=== PATIENT | male | born 1975 | race Caucasian/White ===

== ENCOUNTER 2017-01-20 14:20 | Emergency (ER) | payer BC ==
[~2017-01-20] VITALS: Ht 167.6 cm; Wt 72.7 kg
[~2017-01-20 14:20] MED LIST: AMOXICILLIN875 MG OR; CEPHALEXIN500 M1 OR; KEFLEX500 M1 PO; MEDDOSEPAK OR; MULTIVITAMIN PO; NO HOME MEDS; TRAZODONE100 MG PO; ULTRAM50 M1 PO
[2017-01-20 14:59] LABS: HEMATOCRIT 43.4 % (39.0-50.0); HEMOGLOBIN 15.9 g/dl (14.0-18.0); IMMATURE GRANULOCYTES 0.3 % (0.0-1.0); MEAN CELL VOLUME 93.9 fL CALC (80.0-100.0); MEAN CORPUSCULAR HGB 34.4 pG CALC (26.0-32.0); MEAN CORPUSCULAR HGB CONC 36.6 g/L CALC (32.0-36.0); NEUT# 4.5 thou/uL (1.82-7.42); RED BLOOD COUNT 4.62 mill/uL (4.70-6.10); RED CELL DISTRI WIDTH 13.8 % (11.5-15.5)
[2017-01-20 15:00] LABS: URINE BILIRUBIN - DIPSTICK NEGATIVE (NEGATIVE); URINE BLOOD DIPSTICK NEGATIVE (NEGATIVE); URINE CLARITY CLEAR; URINE COLOR YELLOW; URINE GLUCOSE - DIPSTICK NEGATIVE (NEGATIVE); URINE KETONE NEGATIVE (NEGATIVE); URINE LEUK ESTERASE NEGATIVE (NEGATIVE); URINE NITRITE - DIPSTICK NEGATIVE (Negative); URINE PROTEIN - DIPSTICK NEGATIVE (NEG-TRACE); URINE SPECIFIC GRAVITY <=1.005; URINE UROBILINOGEN - DIPSTICK 0.2 E.U./dL (0.2)
[2017-01-20 15:04] LABS: MAGNESIUM 2.1 mg/dL (1.6-2.3)
[2017-01-20 15:04] LABS: BARBITURATES NEGATIVE (NEGATIVE); COCAINE NEGATIVE (NEGATIVE); METHADONE NEGATIVE (NEGATIVE); OXCYCODONE NEGATIVE (NEGATIVE); TETRAHYDROCANNABIONOL POSITIVE (NEGATIVE); TRICYLIC ANTIDEPRESSANTS NEGATIVE (NEGATIVE)
[2017-01-20 15:13] LABS: ETHYL ALCOHOL 387 mg/dl (0-30)
[2017-01-21 01:51] VITALS: BP 131/93
== END 2017-01-21 05:20 | DRG 880 ==
LOC: ED 14:20
PROVIDERS: Emergency Medicine
DX: R45.851 Suicidal ideations (principal); F10.129 Alcohol abuse with intoxication, unspecified; Y90.8 Blood alcohol level of 240 mg/100 ml or more; R94.31 Abnormal electrocardiogram [ECG] [EKG]
CPT/HCPCS: J2060

== ENCOUNTER 2019-10-17 | Emergency (ER) | payer SELFPAY ==
[2019-10-17 11:51] LABS: HEMATOCRIT 42.7 % (39.0-50.0); HEMOGLOBIN 14.4 g/dl (14.0-18.0); IMMATURE GRANULOCYTES 0.1 % (0.0-5.0); MEAN CELL VOLUME 91.6 fL CALC (80.0-100.0); MEAN CORPUSCULAR HGB 30.9 pG CALC (26.0-32.0); MEAN CORPUSCULAR HGB CONC 33.7 g/L CALC (32.0-36.0); NEUT# 4.02 thou/uL (1.82-7.42); RED BLOOD COUNT 4.66 mill/uL (4.70-6.10); RED CELL DISTRI WIDTH 15.9 % (11.5-15.5)
[2019-10-17 12:09] LABS: ALKALINE PHOSPHATASE 73 u/l (38-126); ANION GAP 16 (6-22 (CALC)); BILIRUBIN, TOTAL 0.3 mg/dL (0.0-1.4); BUN 4 mg/dL (9-20); BUN/CREATININE RATIO 6 (12-20 (CALC)); CARBON DIOXIDE 25 mmol/l (22-30); CHLORIDE 107 mmol/l (95-108); CREATININE 0.7 mg/dL (0.7-1.3); GFR > 60 ML/MIN (>=60 (CALC)); GFR FOR AFR.AMER. > 60 ML/MIN (>=60 (CALC)); LIPASE 210 u/l (23-300); SGOT/AST 52 u/l (17-59); SODIUM 144 mmol/l (137-146)
[2019-10-17 12:17] LABS: ETHYL ALCOHOL 381 mg/dl (0-30)
[2019-10-17] MEDS ORDERED: ZITHROMAX250 MG PO (14:37)
[2019-10-17] MEDS ORDERED: PROVENTIL108 MCG/AC IN (14:37)
== END 2019-10-17 15:40 | disposition home or self-care (01) | DRG 203 ==
DX: J45.901 Unspecified asthma with (acute) exacerbation (principal); F10.129 Alcohol abuse with intoxication, unspecified; I10 Essential (primary) hypertension; F17.200 Nicotine dependence, unspecified, uncomplicated

== ENCOUNTER 2019-10-24 | Emergency (ER) | payer OTHER ==
[~2019-10-24] MED LIST changes: +PROVENTIL108 MCG/AC IN; +ZITHROMAX250 MG PO
[2019-10-24 08:59] LABS: IMMATURE GRANULOCYTES 0.3 % (0.0-5.0); MEAN CELL VOLUME 94.2 fL CALC (80.0-100.0); MEAN CORPUSCULAR HGB 31.4 pG CALC (26.0-32.0); MEAN CORPUSCULAR HGB CONC 33.3 g/L CALC (32.0-36.0); NEUT# 5.5 thou/uL (1.82-7.42); RED BLOOD COUNT 4.46 mill/uL (4.70-6.10); RED CELL DISTRI WIDTH 16.1 % (11.5-15.5)
[2019-10-24 09:23] LABS: ALBUMIN 4.2 g/dL (3.2-5.0); ALKALINE PHOSPHATASE 69 u/l (38-126); BUN 7 mg/dL (9-20); BUN/CREATININE RATIO 11 (12-20 (CALC)); CARBON DIOXIDE 23 mmol/l (22-30); CHLORIDE 103 mmol/l (95-108); CREATININE 0.6 mg/dL (0.7-1.3); GFR > 60 ML/MIN (>=60 (CALC)); GFR FOR AFR.AMER. > 60 ML/MIN (>=60 (CALC)); POTASSIUM 3.9 mmol/l (3.5-5.1); SGOT/AST 51 u/l (17-59); TOTAL PROTEIN 7.3 g/dL (6.3-8.2)
[2019-10-24 09:24] LABS: ANION GAP 14 (6-22 (CALC)); BILIRUBIN, TOTAL 0.9 mg/dL (0.0-1.4); SODIUM 136 mmol/l (137-146)
[2019-10-24 09:32] LABS: MYOGLOBIN 42 ng/mL (0 - 121)
[2019-10-24 10:18] LABS: URINE BLOOD DIPSTICK NEGATIVE (NEGATIVE); URINE COLOR YELLOW; URINE GLUCOSE - DIPSTICK NEGATIVE (NEGATIVE); URINE KETONE >=80 mg/dL (NEGATIVE); URINE LEUK ESTERASE NEGATIVE (NEGATIVE); URINE NITRITE - DIPSTICK NEGATIVE (Negative); URINE PH 7.5 (4.5-8.0); URINE PROTEIN - DIPSTICK NEGATIVE (NEG-TRACE); URINE SPECIFIC GRAVITY 1.015
[2019-10-24 10:19] LABS: URINE BILIRUBIN - DIPSTICK SMALL (NEGATIVE)
[2019-10-24 10:30] LABS: BARBITURATES NEGATIVE (NEGATIVE); COCAINE NEGATIVE (NEGATIVE); METHADONE NEGATIVE (NEGATIVE); OXCYCODONE NEGATIVE (NEGATIVE); TETRAHYDROCANNABIONOL NEGATIVE (NEGATIVE); TRICYLIC ANTIDEPRESSANTS NEGATIVE (NEGATIVE)
[2019-10-24] MEDS ORDERED: LIBRIUM25 M1 PO (10:35)
[2019-10-24] MEDS ORDERED: CLONIDINE0.1 MG PO (10:35)
== END 2019-10-24 10:45 | DRG 897 ==
PROVIDERS: Emergency Medicine
DX: F10.10 Alcohol abuse, uncomplicated (principal); I10 Essential (primary) hypertension; F17.200 Nicotine dependence, unspecified, uncomplicated
CPT/HCPCS: J2060

== ENCOUNTER 2024-12-19 11:36 | Observation (INO) | payer SELFPAY ==
[~2024-12-19] VITALS: Ht 167.6 cm; Wt 71.8 kg
[~2024-12-19 11:36] MED LIST changes: +CLONIDINE0.1 MG PO; +LIBRIUM25 M1 PO
[2024-12-19] MEDS ORDERED: IPRATROPIUM-Albuterol 0.5MG-2.5MG/3 ML NEB ONE ×2 (12:10)
[2024-12-19] MEDS ORDERED: methylPREDNISolone SODIUM SUCC 125 MG/2 ML SDV IV ONE (12:10)
[2024-12-19 12:44] LABS: BASO% 0.6 % (0-3); HEMATOCRIT 46.5 % (39.0-50.0); HEMOGLOBIN 15.7 g/dl (14.0-18.0); IMMATURE GRANULOCYTES 0.2 % (0.0-5.0); LYMPH% 37.5 % (15-41); MEAN CELL VOLUME 94.7 fL CALC (80.0-100.0); MEAN CORPUSCULAR HGB CONC 33.8 g/dL CAL (32.0-36.0); MONO% 8.3 % (2-13); NEUT# 2.71 thou/uL (1.82-7.42); NEUT% 52.4 % (42-76); RED BLOOD COUNT 4.91 mill/uL (4.70-6.10); RED CELL DISTRI WIDTH 12.8 % (11.5-15.5)
[2024-12-19 12:56] LABS: ALBUMIN 4.1 g/dL (3.2-5.0); ALKALINE PHOSPHATASE 60 u/l (38-126); ANION GAP 20 (6-22 (CALC)); BUN 8 mg/dL (9-20); BUN/CREATININE RATIO 8 (12-20 (CALC)); CARBON DIOXIDE 21 mmol/l (22-30); CHLORIDE 104 mmol/l (95-108); ESTIMATED GFR 93 ML/MIN (>=90 (CALC)); POTASSIUM 3.9 mmol/l (3.5-5.1); SGOT/AST 27 u/l (17-59); SODIUM 141 mmol/l (137-146); TOTAL PROTEIN 7.3 g/dL (6.3-8.2)
[2024-12-19 13:14] LABS: BILIRUBIN, TOTAL 0.4 mg/dL (0.2-1.3)
[2024-12-19 13:15] LABS: ETHYL ALCOHOL 323 mg/dl (0-30)
[2024-12-19 13:26] LABS: URINE BILIRUBIN - DIPSTICK Negative (NEGATIVE); URINE BLOOD DIPSTICK Negative (NEGATIVE); URINE GLUCOSE - DIPSTICK 250 mg/dL (NEGATIVE); URINE KETONE Negative (NEGATIVE); URINE LEUK ESTERASE Negative (NEGATIVE); URINE NITRITE - DIPSTICK Negative (Negative); URINE PH 6.5 (4.5-8.0); URINE PROTEIN - DIPSTICK Negative (NEG-TRACE); URINE SPECIFIC GRAVITY <=1.005; URINE UROBILINOGEN - DIPSTICK 0.2 E.U./dL (0.2)
[2024-12-19 13:27] LABS: URINE COLOR Yellow
[2024-12-19] MEDS ORDERED: ONDANSETRON HCl 4 MG/2 ML SDV IV ONE (15:35)
[2024-12-19] MEDS ORDERED: SODIUM CHLORIDE 0.9% 1,000 ML IV ONE ×2 (15:45)
[2024-12-19] MEDS ORDERED: FOLIC ACID 5 MG/ML IV ONE (15:45)
[2024-12-19] MEDS ORDERED: PROMETHAZINE HCL 25 MG/ML AMP IM ONE (16:00)
[2024-12-19] MEDS ORDERED: Pantoprazole Sodium 40 MG VIAL (Protonix) IV ONE (17:20)
[2024-12-19] MEDS ORDERED: MORPHINE SULFATE 4 MG/ML VIAL IV ONE (17:30)
[2024-12-19] MEDS ORDERED: MAGNESIUM HYDROXIDE 30 ML UDC PO PRN (18:05)
[2024-12-19] MEDS ORDERED: SODIUM CHLORIDE 0.9% 1,000 ML IV PRN (18:05)
[2024-12-19] MEDS ORDERED: ACETAMINOPHEN 325 MG/TAB PO PRN (18:05)
[2024-12-19] MEDS ORDERED: HYDROmorphone HCL 2 MG/AMP IV ONE (18:10)
[2024-12-19 19:00] VITALS: BP 127/83
[2024-12-19] MEDS ORDERED: BENZONATATE200 MG PO (19:06)
[2024-12-19] MEDS ORDERED: DOXYCYCLINE HY100 MG PO (19:07)
[2024-12-19 20:00] VITALS: BP 143/86
[2024-12-19] MEDS ORDERED: PANTOPRAZOLE SODIUM Sesquihydr 40 MG/TAB PO SCH (21:00)
[2024-12-19] MEDS ORDERED: ENOXAPARIN SODIUM 40 MG/0.4 ML SYR SC SCH (21:00)
[2024-12-19] MEDS ORDERED: HYDROcodone 5 MG/Acetaminophen 325 MG/COMBO PO PRN (22:30)
[2024-12-20 04:35] VITALS: BP 143/86
[2024-12-20 05:47] LABS: HEMATOCRIT 41.7 % (39.0-50.0); HEMOGLOBIN 14.5 g/dl (14.0-18.0); MEAN CELL VOLUME 95.9 fL CALC (80.0-100.0); MEAN CORPUSCULAR HGB 33.3 pG CALC (26.0-32.0); MEAN CORPUSCULAR HGB CONC 34.8 g/dL CAL (32.0-36.0); RED BLOOD COUNT 4.35 mill/uL (4.70-6.10); RED CELL DISTRI WIDTH 12.5 % (11.5-15.5)
[2024-12-20 05:56] LABS: ALBUMIN 3.3 g/dL (3.2-5.0); BILIRUBIN, TOTAL 0.5 mg/dL (0.2-1.3); CREATININE 0.9 mg/dL (0.7-1.3); MAGNESIUM 1.9 mg/dL (1.6-2.3)
[2024-12-20 05:57] LABS: POTASSIUM 4.9 mmol/l (3.5-5.1)
[2024-12-20 07:05] VITALS: BP 150/94
[2024-12-20] MEDS ORDERED: chlordiazePOXIDE HCL 25 MG CAP PO PRN (08:30)
[2024-12-20] MEDS ORDERED: SODIUM CHLORIDE 0.9% 1,000 ML IV ONE (09:00)
[2024-12-20] MEDS ORDERED: MULTIPLE VITAMIN 10 ML,THIAMINE HCL 100 MG in SODIUM CHLORIDE 0.9% 1,000 ML IV SCH (10:00)
[2024-12-20] MEDS ORDERED: CHLORDIAZEPOXID25 M1 PO (10:13)
[2024-12-20] MEDS ORDERED: PANTOPRAZOLE SO40 M1 PO (10:13)
[2024-12-20 10:26] VITALS: BP 156/86
[2024-12-21] MEDS ORDERED: LISINOPRIL40 MG PO (20:04)
[2024-12-21] MEDS ORDERED: FENOFIBRATE40 MG PO (20:04)
[2024-12-21] MEDS ORDERED: TOPROL XL25 M1 PO (20:04)
[2024-12-21] MEDS ORDERED: SINEQUAN25 MG PO (20:05)
[2024-12-21] MEDS ORDERED: GABAPENTIN300 M3 PO (20:05)
== END 2024-12-20 13:03 | disposition home or self-care (01) | DRG 392 ==
LOC: ED 11:36 → ED-I 15:00 → ED 17:27 → MS2 17:28
PROVIDERS: Family Medicine; ADMIT Internal Medicine; ATTEND Internal Medicine
DX: K29.80 Duodenitis without bleeding (principal); R45.851 Suicidal ideations; K86.1 Other chronic pancreatitis; Z59.01 Sheltered homelessness; F10.129 Alcohol abuse with intoxication, unspecified; Y90.8 Blood alcohol level of 240 mg/100 ml or more; F32.A Depression, unspecified; F41.9 Anxiety disorder, unspecified; F17.200 Nicotine dependence, unspecified, uncomplicated; Z91.51 Personal history of suicidal behavior
CPT/HCPCS: G0378; J1171; J1650; J2405; J2470; J2550; J3411; Q9967

== ENCOUNTER 2024-12-21 16:35 | Observation (INO) | payer OTHER ==
[2024-12-21] VITALS (21 sets, daily range): BP systolic 127–160; BP diastolic 83–111
[~2024-12-21] VITALS: Ht 167.6 cm; Wt 73.6 kg
[~2024-12-21 16:35] MED LIST changes: +BENZONATATE200 MG PO; +CHLORDIAZEPOXID25 M1 PO; +DOXYCYCLINE HY100 MG PO; +PANTOPRAZOLE SO40 M1 PO
[2024-12-21] MEDS ORDERED: LIDOCAINE VISCOUS 2% 15 ML UDC PO ONE (16:40)
[2024-12-21] MEDS ORDERED: ALUM & MAG HYDROX-SIMETHICONE 30 ML PO ONE (16:40)
[2024-12-21] MEDS ORDERED: ONDANSETRON HCl 4 MG/2 ML SDV IV ONE (16:40)
[2024-12-21 16:47] LABS: BASO% 0.2 % (0-3); EOS% 0.2 % (0-8); HEMATOCRIT 45.5 % (39.0-50.0); HEMOGLOBIN 15.5 g/dl (14.0-18.0); IMMATURE GRANULOCYTES 0.2 % (0.0-5.0); LYMPH% 15.2 % (15-41); MEAN CELL VOLUME 94.8 fL CALC (80.0-100.0); MEAN CORPUSCULAR HGB 32.3 pG CALC (26.0-32.0); MEAN CORPUSCULAR HGB CONC 34.1 g/dL CAL (32.0-36.0); MONO% 6.6 % (2-13); NEUT# 6.59 thou/uL (1.82-7.42); NEUT% 77.6 % (42-76); RED BLOOD COUNT 4.8 mill/uL (4.70-6.10); RED CELL DISTRI WIDTH 12.6 % (11.5-15.5)
[2024-12-21 17:09] LABS: ALBUMIN 3.9 g/dL (3.2-5.0); ALKALINE PHOSPHATASE 66 u/l (38-126); BILIRUBIN, TOTAL 0.7 mg/dL (0.2-1.3); BUN 11 mg/dL (9-20); BUN/CREATININE RATIO 10 (12-20 (CALC)); CARBON DIOXIDE 21 mmol/l (22-30); CHLORIDE 104 mmol/l (95-108); CREATININE 1.1 mg/dL (0.7-1.3); ESTIMATED GFR 83 ML/MIN (>=90 (CALC)); LIPASE 595 u/l (23-300); SGOT/AST 25 u/l (17-59); SODIUM 136 mmol/l (137-146); TOTAL PROTEIN 7.1 g/dL (6.3-8.2)
[2024-12-21 17:19] LABS: ANION GAP 15 (6-22 (CALC)); POTASSIUM 3.6 mmol/l (3.5-5.1)
[2024-12-21] MEDS ORDERED: SODIUM CHLORIDE 0.9% 1,000 ML IV ONE (17:30)
[2024-12-21] MEDS ORDERED: KETOROLAC TROMETHAMINE 30 MG/ML SDV IV ONE (19:30)
[2024-12-21] MEDS ORDERED: PANTOPRAZOLE SODIUM Sesquihydr 40 MG/TAB PO ONE (19:30)
[2024-12-21] MEDS ORDERED: MORPHINE SULFATE 4 MG/ML VIAL IV ONE (19:30)
[2024-12-21] MEDS ORDERED: PROMETHAZINE HCL 25 MG/ML AMP IV ONE (19:30)
[2024-12-21] MEDS ORDERED: MAGNESIUM HYDROXIDE 30 ML UDC PO PRN (19:40)
[2024-12-21] MEDS ORDERED: HYDROmorphone HCL 2 MG/AMP IV PRN (19:40)
[2024-12-21] MEDS ORDERED: ACETAMINOPHEN 325 MG/TAB PO PRN (19:40)
[2024-12-21] MEDS ORDERED: SODIUM CHLORIDE 0.9% 1,000 ML IV SCH (19:40)
[2024-12-21] MEDS ORDERED: Zaleplon 5 MG/CAP PO PRN (19:40)
[2024-12-21] MEDS ORDERED: chlordiazePOXIDE HCL 25 MG CAP PO PRN (19:45)
[2024-12-21] MEDS ORDERED: FENOFIBRATE40 MG PO (20:04)
[2024-12-21] MEDS ORDERED: LISINOPRIL40 MG PO (20:04)
[2024-12-21] MEDS ORDERED: TOPROL XL25 M1 PO (20:04)
[2024-12-21] MEDS ORDERED: GABAPENTIN300 M3 PO (20:05)
[2024-12-21] MEDS ORDERED: SINEQUAN25 MG PO (20:05)
[2024-12-21] MEDS ORDERED: PANTOPRAZOLE SODIUM Sesquihydr 40 MG/TAB PO SCH (21:00)
[2024-12-21] MEDS ORDERED: ENOXAPARIN SODIUM 40 MG/0.4 ML SYR SC SCH (21:00)
[2024-12-22] VITALS (7 sets, daily range): BP systolic 134–158; BP diastolic 85–88
[2024-12-22 05:56] LABS: BASO% 0.4 % (0-3); EOS% 2.7 % (0-8); HEMATOCRIT 42.3 % (39.0-50.0); HEMOGLOBIN 13.8 g/dl (14.0-18.0); MEAN CELL VOLUME 98.8 fL CALC (80.0-100.0); MEAN CORPUSCULAR HGB 32.2 pG CALC (26.0-32.0); MEAN CORPUSCULAR HGB CONC 32.6 g/dL CAL (32.0-36.0); MONO% 13.1 % (2-13); NEUT# 3.46 thou/uL (1.82-7.42); NEUT% 61.8 % (42-76); RED BLOOD COUNT 4.28 mill/uL (4.70-6.10); RED CELL DISTRI WIDTH 12.7 % (11.5-15.5)
[2024-12-22 06:00] LABS: BILIRUBIN, TOTAL 0.5 mg/dL (0.2-1.3); MAGNESIUM 1.8 mg/dL (1.6-2.3); POTASSIUM 3.8 mmol/l (3.5-5.1)
[2024-12-22 06:05] LABS: ALBUMIN 2.7 g/dL (3.2-5.0); TOTAL PROTEIN 5.3 g/dL (6.3-8.2)
[2024-12-22] MEDS ORDERED: THIAMINE HCL 100 MG TAB PO SCH (09:00)
[2024-12-22] MEDS ORDERED: FOLIC ACID 1 MG/TAB PO SCH (09:00)
[2024-12-22] MEDS ORDERED: MULTIPLE VITAMIN TABLET PO SCH (09:00)
[2024-12-22] MEDS ORDERED: LISINOPRIL 20 MG/TAB PO SCH (10:15)
[2024-12-22] MEDS ORDERED: amLODIPine BESYLATE 5 MG/TAB PO SCH (10:30)
[2024-12-22] MEDS ORDERED: PIPERACILLIN Sodium-Tazobactam 3.375 GM in SODIUM CHLORIDE 0.9% 100 ML IV SCH (12:00)
[2024-12-22] MEDS ORDERED: IPRATROPIUM-Albuterol 0.5MG-2.5MG/3 ML NEB SCH (13:00)
[2024-12-23 04:28] VITALS: BP 157/80
[2024-12-23 05:57] LABS: BASO% 0.8 % (0-3); EOS% 6.5 % (0-8); HEMATOCRIT 39.4 % (39.0-50.0); HEMOGLOBIN 13.1 g/dl (14.0-18.0); IMMATURE GRANULOCYTES 0.2 % (0.0-5.0); LYMPH% 30.6 % (15-41); MEAN CELL VOLUME 97.5 fL CALC (80.0-100.0); MEAN CORPUSCULAR HGB 32.4 pG CALC (26.0-32.0); MEAN CORPUSCULAR HGB CONC 33.2 g/dL CAL (32.0-36.0); MONO% 12.9 % (2-13); NEUT# 2.4 thou/uL (1.82-7.42); RED BLOOD COUNT 4.04 mill/uL (4.70-6.10); RED CELL DISTRI WIDTH 12.4 % (11.5-15.5)
[2024-12-23 06:07] LABS: ALBUMIN 2.8 g/dL (3.2-5.0); BILIRUBIN, TOTAL 0.5 mg/dL (0.2-1.3); MAGNESIUM 1.9 mg/dL (1.6-2.3); POTASSIUM 3.8 mmol/l (3.5-5.1); TOTAL PROTEIN 5.4 g/dL (6.3-8.2)
[2024-12-23 06:53] VITALS: BP 160/97
[2024-12-23] MEDS ORDERED: amLODIPine BESYLATE 5 MG/TAB PO SCH (11:00)
[2024-12-23 15:04] VITALS: BP 132/94
[2024-12-24 03:48] VITALS: BP 146/85
[2024-12-24 05:59] LABS: ALBUMIN 2.9 g/dL (3.2-5.0); BILIRUBIN, TOTAL 0.5 mg/dL (0.2-1.3); POTASSIUM 3.8 mmol/l (3.5-5.1); TOTAL PROTEIN 5.4 g/dL (6.3-8.2)
[2024-12-24 06:14] LABS: BASO% 0.8 % (0-3); EOS% 9.7 % (0-8); HEMATOCRIT 39.9 % (39.0-50.0); HEMOGLOBIN 13.3 g/dl (14.0-18.0); IMMATURE GRANULOCYTES 0.2 % (0.0-5.0); LYMPH% 30.6 % (15-41); MEAN CELL VOLUME 96.6 fL CALC (80.0-100.0); MEAN CORPUSCULAR HGB 32.2 pG CALC (26.0-32.0); MEAN CORPUSCULAR HGB CONC 33.3 g/dL CAL (32.0-36.0); MONO% 13.5 % (2-13); NEUT# 2.24 thou/uL (1.82-7.42); NEUT% 45.2 % (42-76); RED BLOOD COUNT 4.13 mill/uL (4.70-6.10); RED CELL DISTRI WIDTH 12.6 % (11.5-15.5)
[2024-12-24 07:00] VITALS: BP 178/101
[2024-12-24 08:35] VITALS: BP 178/101
[2024-12-24] MEDS ORDERED: amLODIPine BESYLATE 5 MG/TAB PO SCH (09:00)
[2024-12-24] MEDS ORDERED: DOXYCYCLINE100 MG PO (10:13)
[2024-12-24] MEDS ORDERED: AMLODIPINE BESY10 MG PO (10:14)
[2024-12-24] MEDS ORDERED: METOPROLOL SUCC50 MG PO (10:14)
[2024-12-24] MEDS ORDERED: VENTOLIN HFA108 MCG IN (10:14)
[2024-12-24] MEDS ORDERED: PROTONIX40 M2 PO (10:15)
== END 2024-12-24 11:33 | DRG 439 ==
LOC: ED 16:35 → ED-I 19:14 → ED 19:27 → MS2 19:28
PROVIDERS: Family Medicine; Nurse Practitioner Family; ADMIT Internal Medicine; ATTEND Internal Medicine
DX: K85.20 Alcohol induced acute pancreatitis without necrosis or infection (principal); J44.1 Chronic obstructive pulmonary disease with (acute) exacerbation; K86.0 Alcohol-induced chronic pancreatitis; F10.10 Alcohol abuse, uncomplicated; I10 Essential (primary) hypertension; E78.5 Hyperlipidemia, unspecified; F17.200 Nicotine dependence, unspecified, uncomplicated; Z86.73 Personal history of transient ischemic attack (TIA), and cerebral infarction without residual deficits
CPT/HCPCS: G0378; J1171; J1650; J2405; J2543; J2550; Q9967

== ENCOUNTER 2024-12-27 07:04 | Emergency (ER) | payer OTHER ==
[~2024-12-27] VITALS: Ht 167.6 cm; Wt 72.0 kg
[~2024-12-27 07:04] MED LIST changes: +AMLODIPINE BESY10 MG PO; +DOXYCYCLINE100 MG PO; +FENOFIBRATE40 MG PO; +GABAPENTIN300 M3 PO; +LISINOPRIL40 MG PO; +METOPROLOL SUCC50 MG PO; +PROTONIX40 M2 PO; +SINEQUAN25 MG PO; +TOPROL XL25 M1 PO; +VENTOLIN HFA108 MCG IN
[2024-12-27] MEDS ORDERED: LIDOcaine HCl 1% (Local Anesth.) 20 ML VIAL STI STA (07:10)
[2024-12-27] MEDS ORDERED: Diph, Acellular Pertussis, Tet 0.5 ML/VIAL (Tdap) SDV IM ONE (07:10)
[2024-12-27] MEDS ORDERED: POVIDONE IODINE 0.5 OZ/BTL TOP ONE (07:10)
[2024-12-27 07:13] VITALS: BP 110/75
[2024-12-27 07:15] VITALS: BP 107/74
[2024-12-27 07:30] VITALS: BP 127/81
[2024-12-27] MEDS ORDERED: ACETAMINOPHEN 325 MG/TAB PO ONE (07:30)
[2024-12-27] MEDS ORDERED: CEPHALEXIN500 M1 PO (07:31)
[2024-12-27 07:39] VITALS: BP 107/74
== END 2024-12-27 07:39 | disposition home or self-care (01) | DRG 605 ==
LOC: ED 07:04
DX: S61.511A Laceration without foreign body of right wrist, initial encounter (principal); W45.8XXA Other foreign body or object entering through skin, initial encounter; Y93.9 Activity, unspecified; Y92.149 Unspecified place in prison as the place of occurrence of the external cause
CPT/HCPCS: 90715